=== PATIENT | male | born 1990 | race Caucasian/White ===

== ENCOUNTER 2016-12-20 09:04 | Day surgery (SDC) | payer OTHER ==
[2016-12-20] MEDS ORDERED: Sodium Chloride 0.9% 1,000 ML IV ONE ×2 (09:36→12:47)
--- NOTE | 2016-12-20 09:44 | C.PDOC ---
History Of Present Illness 26 year old male presents to the ED with complaints of constant LLQ abdominal pain and hematuria for three days. Patient states he had lithotripsy performed by Dr. Satnam Alas on Monday12/16/2016. He notes he has been compliant with medications and denies fever, nausea, vomiting, diarrhea, or difficulty urinating. Time Seen by Provider: 12/20/16 09:35 Chief Complaint (Nursing): Male Genitourinary History Per: Patient History/Exam Limitations: no limitations Onset/Duration Of Symptoms: Days (3 days) Current Symptoms Are (Timing): Still Present Quality Of Discomfort: "Pain" Associated Symptoms: denies: Fever, Chills, Nausea, Vomiting, Diarrhea Recent travel outside of the [place]: No Additional History Per: Prior Records Past Medical History Reviewed: Historical Data, Nursing Documentation, Vital Signs Vital Signs: Last Vital Signs Temp 98.7 F 12/20/16 19:45 Pulse 87 12/20/16 19:45 Resp 12 12/20/16 19:45 BP 131/86 12/20/16 19:45 Pulse Ox 98 12/20/16 19:45 - Medical History PMH: Kidney Stones, Chronic Kidney Disease Family History: States: Unknown Family Hx - Social History Hx Alcohol Use: No Hx Substance Use: No - Immunization History Hx Tetanus Toxoid Vaccination: No Hx Influenza Vaccination: No Hx Pneumococcal Vaccination: No Review Of Systems Constitutional: Negative for: Fever, Chills Cardiovascular: Negative for: Chest Pain Respiratory: Negative for: Shortness of Breath Gastrointestinal: Positive for: Abdominal Pain. Negative for: Nausea, Vomiting , Diarrhea Genitourinary: Positive for: Hematuria Musculoskeletal: Negative for: Back Pain Physical Exam - Physical Exam Appears: Non-toxic, No Acute Distress Skin: Warm, Dry Head: Atraumatic Eye(s): bilateral: Normal Inspection, PERRL, EOMI Oral Mucosa: Moist Neck: Supple Chest: Symmetrical, No Deformity Cardiovascular: Rhythm Regular Respiratory: Normal Breath Sounds, No Rhonchi, No Wheezing Gastrointestinal/Abdominal: Soft, Tenderness (LLQ tenderness), No Distention, No Guarding, No Rebound Back: Normal Inspection Extremity: Normal ROM, No Tenderness Neurological/Psych: Oriented x3 Gait: Steady ED Course And Treatment - Laboratory Results Result Diagrams: 12/20/16 10:16 12/20/16 10:16 Progress Note: CT scan was ordered. Patient was given Toradol and IV fluids. Medical Decision Making Medical Decision Making: Impression: Left sided abdominal pain, hematuria Plan: * Urinalysis * Xray Progress: UA shows RBCs, XRay shows no calculus. 10:[address] Johnathan Alas 10:50 Dr Alas calls back and requests CT scan to rule out any remaining calculus or hematoma 12:30 Dr Alas states will come to ED at 1430 and to keep patient NPO for the OR Disposition - Disposition Disposition: HOSPITALIZED Disposition Time: 13:49 Condition: STABLE - POA Present On Arrival: None - Clinical Impression Clinical Impression: Calculus of distal left ureter - Scribe Statement The provider has reviewed the documentation as recorded by the Scribe Cecile Alonzo All medical record entries made by the Brianibe were at my direction and personally dictated by me. I have reviewed the chart and agree that the record accurately reflects my personal performance of the history, physical exam, medical decision making, and the department course for this patient. I have also personally directed, reviewed, and agree with the discharge instructions and disposition. Decision To Admit - Pt Status Changed To: Hospital Disposition Of: SDS- Endo,OR,Cath,IR - . Bed Request Type: Same Day Surgery Admitting Physician: Satnam Alas Patient Diagnosis: Calculus of distal left ureter
[2016-12-20 09:59] LABS: RBC URINE 2168 /hpf (0-3); URINE BACTERIA RARE (<OCC); URINE BILIRUBIN NEGATIVE (NEGATIVE); URINE BLOOD 2+ (NEGATIVE); URINE COLOR Red (YELLOW); URINE GLUCOSE (UA) NORMAL (Normal); URINE KETONE NEGATIVE (NEGATIVE); URINE LEUKOCYTE ESTERASE TRACE Leu/uL (Negative); URINE PROTEIN 2+ mg/dL (NEGATIVE); URINE UROBILINOGEN NORMAL mg/dL (0.2-1.0); WBC URINE 51 /hpf (0-5)
[2016-12-20] MEDS ORDERED: Sodium Chloride 0.9% 1,000 ML ONE ×2 (10:02→13:09)
[2016-12-20 10:20] LABS: HEMATOCRIT 43.5 % (35.0-51.0); MEAN CELL VOLUME 89.4 fL (80.0-94.0); MEAN CORPUSCULAR HEMOGLOBIN 28.9 pg (27.0-31.0); MEAN CORPUSCULAR HGB CONC 32.4 g/dL (33.0-37.0); MEAN PLATELET VOLUME 8.5 fL (7.2-11.7); WHITE BLOOD COUNT 6.8 K/uL (4.8-10.8)
--- NOTE | 2016-12-20 10:28 | RAD ---
HISTORY: Left kidney stone COMPARISON: CT abdomen and pelvis without contrast performed 02/16/16 FINDINGS: BOWEL: Nonobstructive bowel gas pattern. No definite free air. Bowel gas/debris limits evaluation for coarse calcifications which are not clearly evident on this examination. BONES: No acute osseous abnormality is detected. OTHER FINDINGS: None. IMPRESSION: No acute findings.
[2016-12-20 10:33] LABS: CHLORIDE 97 mmol/L (98-107)
[2016-12-20 10:34] LABS: POTASSIUM 4.3 mmol/L (3.6-5.2); SODIUM 141 mmol/L (132-148)
[2016-12-20 10:36] LABS: ALB/GLOB RATIO 1.3 (1.0-2.1); ALKALINE PHOSPHATASE 93 U/L (38-126); AST/SGOT 30 U/L (17-59); BILIRUBIN,TOTAL 0.6 mg/dL (0.2-1.3); BLOOD UREA NITROGEN 6 mg/dL (9-20); CARBON DIOXIDE 28 mmol/L (22-30); GFR AFRICAN-AMERICAN > 60; TOTAL PROTEIN 7.7 g/dL (6.3-8.3)
[2016-12-20 10:37] LABS: ALT/SGPT 22 U/L (21-72); CALCIUM 9.3 mg/dl (8.6-10.4); GLUCOSE,RANDOM 88 mg/dL (75-110)
--- NOTE | 2016-12-20 11:56 | CT ---
PROCEDURE: CT Abdomen and Pelvis without Oral or IV contrast. HISTORY: left flank pain COMPARISON: CT abdomen and pelvis without contrast performed 02/16/16 TECHNIQUE: Contiguous axial images of the abdomen and pelvis. No oral or IV contrast administered. Coronal and Sagittal reformats generated and reviewed. Radiation dose: Total exam DLP = 448.99 MGy-cm. This CT exam was performed using one or more of the following dose reduction techniques: Automated exposure control, adjustment of the mA and/or kV according to patient size, and/or use of iterative reconstruction technique. FINDINGS: There is limited evaluation of the solid organs without the administration of IV contrast. LOWER THORAX: No visible consolidation, pleural effusion, or pneumothorax. LIVER: Unremarkable unenhanced appearance. GALLBLADDER AND BILE DUCTS: Unremarkable unenhanced appearance. PANCREAS: Unremarkable unenhanced appearance. SPLEEN: Unremarkable unenhanced appearance. ADRENALS: Unremarkable unenhanced appearance. KIDNEYS AND URETERS: 6 mm obstructing distal left ureteral calculus (series 3, image 136), with proximal hydroureter nephrosis. Nonobstructing 5 mm and 3 mm left lower pole calculi. BLADDER: The urinary bladder appears unremarkable. Evidence of urachal remnant. REPRODUCTIVE: Unremarkable. APPENDIX: The appendix appears within normal limits of caliber. No secondary signs of acute appendicitis. BOWEL: The stomach is nondistended. Lack of oral contrast limits evaluation for bowel pathology. The bowel loops appear within normal limits of caliber without evidence of intestinal obstruction. PERITONEUM: No significant free fluid. No definite free air. LYMPH NODES: No bulky lymphadenopathy identified. VASCULATURE: No aortic aneurysm. BONES: No acute osseous abnormality is detected. OTHER FINDINGS: Tiny fat containing umbilical hernia IMPRESSION: 6 mm obstructing distal left ureteral calculus, with proximal hydroureteronephrosis. Nonobstructing 5 mm and 3 mm left lower pole calculi. The patient has a urachal remnant. Please note that patients with a urachal remnant are at increased risk for adenocarcinoma of the bladder.
[2016-12-20] MEDS ORDERED: Iohexol 240 (50 ml) ONE (17:02)
[2016-12-20] MEDS ORDERED: cefTRIAXone IV 1 gm in Dextros 50 ML IVPB ONE (17:02)
[2016-12-20] MEDS ORDERED: Lactated Ringer's 1,000 ML IV ONE (17:15)
[2016-12-20] MEDS ORDERED: Propofol 10 mg/ml Inj (20 ML) ONE (17:19)
[2016-12-20] MEDS ORDERED: Lidocaine 2% Jelly (Uro-Jet) ONE (17:51)
[2016-12-20] MEDS ORDERED: HYDROmorphone 0.5 mg/0.5 ml ISec IVP PRN (18:05)
[2016-12-20] MEDS ORDERED: Gentamicin 80 mg in 0.9% NS 80 MG/100 ML BAG IVPB SCH (19:00)
[2016-12-20 20:39] VITALS: BP 131/86; PULSE 87; RESP 12; TEMP 98.7; O2SAT 98
--- NOTE | 2016-12-21 13:01 | RAD ---
HISTORY: LEFT HYDRONEPHROSIS/URETERAL STONE COMPARISON: CT abdomen/ pelvis 12/20/2016 FINDINGS: BOWEL: Normal abdominal bowel gas pattern. No hepatic or splenic enlargement. Three calcifications adjacent to 1 another in the upper left pelvis corresponding to location of the reported ureteral calculus on CT examination of the same date. In retrospect, CT likely demonstrates several calculi as imaged on the coronal reformatted views. These calculi measure 4-5 mm each in diameter. No other abnormal intra-abdominal calcifications are identified. BONES: Normal. OTHER FINDINGS: None. IMPRESSION: Three small calculi adjacent to one another in the distal left ureter, above the level of the ureterovesical junction.
--- NOTE | 2016-12-21 13:02 | RAD ---
PROCEDURE: Intraoperative fluoroscopy HISTORY: LEFT URETERAL STONE COMPARISON: Not available TECHNIQUE: Fluoroscopy was provided for left ureteral stent placement. Total time of fluoroscopy was 11.0 seconds. FINDINGS: Eight fluoroscopic spot films are submitted demonstrating placement of a left ureteral stent. Films are on file for review. IMPRESSION: Fluoroscopy provided.
--- NOTE | 2016-12-30 17:18 | OP ---
PREOPERATIVE DIAGNOSES: Urolithiasis, hematuria, hydronephrosis, flank pain. POSTOPERATIVE DIAGNOSES: Urolithiasis, hematuria, hydronephrosis, flank pain. PROCEDURES: Cystoscopy, ureteroscopy, stone basketing, insertion of a double-J stent without dangles. COMPLICATIONS: There were no complications. ESTIMATED BLOOD LOSS: Less than 10 mL. FINDINGS: 1. Normal anterior urethra. 2. No strictures on reviewing and it was minimally visually occlusive. 3. The ureteral orifice is within normal limits, looked like it was passing some stones. 4. There is a moderate stone burden within the ureter. We basketed some of the stones and placed a double-J stent. INDICATIONS: See the history and physical for further details. A very pleasant gentleman, 3-day history , presented initially with some intermittent pain. We did an ESWL. We broke into the stone, seen many than previously dictated notes, but now he is here on 12/20/2016 for the above procedure. He is complaining of stone bothering him, so we did a cystoscope and ureteroscopy with a plan to remove as much stone as we can, place double J-stent to see if this will make him feel better. We did the ESWL without a stent. The patient tolerated the procedure well without complication, but since then, he is having tremendous amount of discomfort and flank pain, and now we have the stone with hydro, so we brought him into the OR. DESCRIPTION OF PROCEDURE: After obtaining informed consent, the patient was placed on the table. Routine monitors were placed. Time-out was called to confirm the patient, positioning, etc. Antibiotic prophylaxis was given. We introduced the cystoscope via the urethra. Normal anterior urethra. No strictures on reviewing it and minimally to moderately visually occlusive. Ureteral orifice was identified and a retrograde was performed. We now introduced the wire up to the kidney. We went adjacent to this and we feel lot of stones and stone debris. There was one particularly prominent stone. We basketed more prominently and then we basketed others. The ureteroscope went in and out without difficulty and we had a safety wire with it all time. At the termination, we determined to insert a double-J stent and actually we removed the dangles and see if the patient will do well. ADDENDUM: The patient subsequently had stent pain and discomfort which we need to address as well. Shaggy Alas MD
== END 2016-12-20 20:25 | disposition home or self-care (01) ==
LOC: C.ER 09:04 → C.SDS 14:02
PROVIDERS: ATTEND Urology
DX: N13.2 Hydronephrosis with renal and ureteral calculous obstruction (principal)
CPT/HCPCS: 52332; 74000; 74176; 76000; 80053; 81001; 82365; 85027; 88300; 96361; 96374; 99285; C1769; C2617; J0696; J1170; J1580; J1885; J7040; J7120

== ENCOUNTER 2016-12-21 20:32 | Observation (INO) | payer OTHER ==
[2016-12-21] MEDS ORDERED: Sodium Chloride 0.9% 1,000 ML IV ONE (21:57)
--- NOTE | 2016-12-21 22:14 | C.PDOC ---
History Of Present Illness A 26 y/o M with a recent left kidney stone and a lithotripsy done December 16, c/o diffuse left sided flank pain and hematuria with associated nausea that began today. Reports flank pain and hematuria continued after the lithotripsy. A stent was placed yesterday by Dr. Satnam Alas. Notes last night he was fine, but today c/o increasing pain. Took Motrin, Tylenol, Flomax, and Ibuprofen with no relief. Denies vomiting, fever, chills, or any other complaints. Time Seen by Provider: 12/21/16 21:47 Chief Complaint (Nursing): Dizziness/Lightheaded History Per: Patient History/Exam Limitations: no limitations Onset/Duration Of Symptoms: Days Current Symptoms Are (Timing): Still Present Severity: Mild Quality Of Discomfort: "Pain" Associated Symptoms: Nausea. denies: Vomiting Recent travel outside of the [place]: No Additional History Per: Patient Past Medical History Reviewed: Historical Data, Nursing Documentation, Vital Signs Vital Signs: Last Vital Signs Temp 98.3 F 12/21/16 20:37 Pulse 68 12/21/16 20:37 Resp 20 12/21/16 20:37 BP 119/83 12/21/16 20:37 Pulse Ox 98 12/21/16 22:17 - Medical History PMH: Kidney Stones, Chronic Kidney Disease Family History: States: Unknown Family Hx - Social History Hx Alcohol Use: No Hx Substance Use: No - Immunization History Hx Tetanus Toxoid Vaccination: No Hx Influenza Vaccination: No Hx Pneumococcal Vaccination: No Review Of Systems Except As Marked, All Systems Reviewed And Found Negative. Constitutional: Negative for: Fever, Chills Gastrointestinal: Positive for: Nausea. Negative for: Vomiting Genitourinary: Positive for: Hematuria Musculoskeletal: Positive for: Back Pain (Left flank pain, diffuse) Physical Exam - Physical Exam Appears: Non-toxic, No Acute Distress (Quiet on the stretcher) Skin: Warm, Dry Head: Atraumatic, Normacephalic Oral Mucosa: Moist Cardiovascular: Rhythm Regular Respiratory: Normal Breath Sounds, No Accessory Muscle Use, No Rales, No Rhonchi , No Wheezing Gastrointestinal/Abdominal: Soft, Tenderness (Mild mid abominal tenderness) Back: No CVA Tenderness Neurological/Psych: Oriented x3, Normal Speech, Normal Cognition ED Course And Treatment - Laboratory Results Result Diagrams: 12/21/16 22:25 12/21/16 22:25 Lab Interpretation: No Acute Changes O2 Sat by Pulse Oximetry: 98 (RA) Pulse Ox Interpretation: Normal Reevaluation Time: 23:53 Reassessment Condition: Improved (slightly after IV Morphine but still having flank pain.) - Physician Consult Information Time Consulting Physician Contacted: 23:53 Physician Contacted: Satnam Alas Outcome Of Conversation: Patient to be admitted overnight for stent removal tomorrow. Medical Decision Making Medical Decision Making: Impression: A 26 y/o M c/o diffuse left sided flank pain and hematuria with associated nausea that began today. Hx of arecent left kidney stone with a lithotripsy done December 16, Plans: * Blood work up * Morphine * IV fluids * UA * Reassess Disposition - Disposition Disposition: HOSPITALIZED Disposition Time: 23:54 Condition: STABLE - Clinical Impression Clinical Impression: Calculus of distal left ureter, Left flank pain - Scribe Statement The provider has reviewed the documentation as recorded by the Scribe Sunita albrecht All medical record entries made by the Brianibdebra were at my direction and personally dictated by me. I have reviewed the chart and agree that the record accurately reflects my personal performance of the history, physical exam, medical decision making, and the department course for this patient. I have also personally directed, reviewed, and agree with the discharge instructions and disposition.
[2016-12-21 22:29] LABS: BASO % 0.4 % (0.0-2.0); EOS # 0.2 K/uL (0.0-0.7); HEMATOCRIT 42.4 % (35.0-51.0); LYMPH # 2.4 K/uL (1.0-4.3); LYMPH % 23.5 % (20.0-40.0); MEAN CELL VOLUME 88.3 fL (80.0-94.0); MEAN CORPUSCULAR HEMOGLOBIN 29.9 pg (27.0-31.0); MEAN CORPUSCULAR HGB CONC 33.8 g/dL (33.0-37.0); MEAN PLATELET VOLUME 8.4 fL (7.2-11.7); MONO # 0.8 K/uL (0.0-0.8); MONO % 8.2 % (0.0-10.0); RED CELL DISTRIBUTION WIDTH 12.7 % (11.5-14.5)
[2016-12-21] MEDS ORDERED: Morphine 4 MG/ML VIAL ONE (22:32)
[2016-12-21 22:38] LABS: RBC URINE 15 /hpf (0-3); URINE BACTERIA RARE (<OCC); URINE BILIRUBIN NEGATIVE (NEGATIVE); URINE BLOOD 3+ (NEGATIVE); URINE COLOR Straw (YELLOW); URINE GLUCOSE (UA) NORMAL (Normal); URINE KETONE NEGATIVE (NEGATIVE); URINE PROTEIN 1+ mg/dL (NEGATIVE); URINE UROBILINOGEN NORMAL mg/dL (0.2-1.0); WBC URINE 4 /hpf (0-5)
[2016-12-21 22:39] LABS: URINE LEUKOCYTE ESTERASE TRACE Leu/uL (Negative)
[2016-12-21 22:55] LABS: CHLORIDE 96 mmol/L (98-107)
[2016-12-21 22:56] LABS: POTASSIUM 3.5 mmol/L (3.6-5.2); SODIUM 142 mmol/L (132-148)
[2016-12-21 22:58] LABS: ALB/GLOB RATIO 1.3 (1.0-2.1); ALKALINE PHOSPHATASE 93 U/L (38-126); AST/SGOT 34 U/L (17-59); BILIRUBIN,TOTAL 0.6 mg/dL (0.2-1.3); BLOOD UREA NITROGEN 3 mg/dL (9-20); CARBON DIOXIDE 28 mmol/L (22-30); GFR AFRICAN-AMERICAN > 60; TOTAL PROTEIN 7.9 g/dL (6.3-8.3)
[2016-12-21 22:59] LABS: ALT/SGPT 30 U/L (21-72); CALCIUM 9.4 mg/dl (8.6-10.4); GLUCOSE,RANDOM 91 mg/dL (75-110)
[2016-12-22] MEDS ORDERED: Oxycodone/Acetaminophen 5/325 mg Tab PO PRN (00:49)
[2016-12-22] MEDS ORDERED: Potassium Ch 20mEq in D5-1/2NS 1,000 ML IV SCH (01:00)
[2016-12-22] MEDS ORDERED: Midazolam 2 MG/2 ML VIAL ONE (08:56)
[2016-12-22] MEDS ORDERED: Propofol 10 mg/ml Inj (20 ML) ONE (08:56)
[2016-12-22] MEDS ORDERED: cefTRIAXone IV 1 gm in Dextros 50 ML IVPB ONE (08:57)
[2016-12-22] MEDS ORDERED: Lactated Ringer's 1,000 ML IV ONE (09:00)
[2016-12-22] MEDS ORDERED: Lidocaine 2% Jelly (Uro-Jet) ONE (09:36)
[2016-12-22 09:40] VITALS: O2SAT 100
[2016-12-22 12:56] VITALS: PULSE 61
[2016-12-22 12:59] VITALS: BP 126/84; RESP 10; TEMP 97.3
--- NOTE | 2016-12-22 16:27 | OP ---
DATE OF PROCEDURE: 12/22/2016 PREOPERATIVE DIAGNOSES: Urolithiasis, hematuria, severe colic, severe pain when he urinates, and flank pain. POSTOPERATIVE DIAGNOSES: Urolithiasis, hematuria, severe colic, severe pain when he urinates, flank pain, and the stent is in good location. PROCEDURES: Cystoscopy, removal of a left double-J stent, and injection of lidocaine jelly via the urethra. COMPLICATIONS: There were no complications. BLOOD LOSS: Nothing. INDICATIONS: See history and physical for details. This is a very pleasant gentleman, here for the above procedures. He has just been in chronic pain since we did the procedure on 12/16. I have a repeat CT scan. There is no hematoma. In the differential, I considered many different options. On that CT scan, there was no hematoma. The stones are fragmented well with respect to a very successful procedure and he has been passing some little pieces. See the history and physical for details. We put a stent in to see if this would give him relief, it did not, so now he came in to the ER again and I am going to remove the stent as an emergency. I do want to mention in between, the throat pain was bothering him, this is better. He is now also reporting no bowel movements, but it is not bothering him so much, but see plan as listed below in the addendum that is now the procedure itself. DESCRIPTION OF PROCEDURE: After obtaining informed consent, the patient was placed on the table. Routine monitor was placed. Time-out was called to confirm the patient, positioning, etc. The patient was also on antibiotic prophylaxis. We inserted the cystoscope via the urethra. Anterior urethra was normal. No stricture was on the view and it was minimally inclusive. The ureteral orifice was identified and the stent was in good location. Picture was taken. We emptied the bladder. We removed the stent without difficulty. Stent was pulled out grossly intact. I witnessed it, the nurses witnessed it, [place]. Bladder was emptied. Cystoscope was removed. The patient tolerated the procedure well without complications. I just want to mention, at this point, I also injected lidocaine jelly by the urethra to assist the patient. The patient tolerated the procedure well without complications. the patient with postop Toradol. Shaggy Alas MD [facility] # [id number]
--- NOTE | 2016-12-22 20:54 | HP ---
REASON FOR ADMISSION: Severe renal colic, stent pain and abdominal pain. HISTORY OF PRESENT ILLNESS: Very pleasant 26-year-old gentleman. I initially met the patient. He had a stone upon his kidney and wanted emergency treatment. At that time, we had to make arrangements to find a place that his insurance will cover. He is on a student visa and we eventually brought him to [facility] where we did a shockwave lithotripsy outside the body with no stent. Then, I spoke to the patient several times over the weekend that was last Monday and the date was on 12/16/2016, that he was having throat pain and I had recommended emergency room and he started complaining of abdominal/flank pain and actually his throat got better. We gave him some Cepacol lozenges. He is having no shortness of breath or chest pain or any other symptomatic signs, just throat was hurting him. He was not able to and go back to any emergency room. Then, on Monday this week, on 12/19/2016, he was complaining of severe pain. At that time, we did a KUB. I can see the stone was broken nicely. The initial 1 cm stone had broken. But then, he was complaining of pain more and more, and then on 12/20/2016, we brought him to the hospital and we put an immediate stent in. At that time, I also did ureteroscopy and I did stone basketing. He had one large 6 mm stone just around the iliac crest below that area. Just down the way where that would be the crossing of the vessels. Easily seen on the KUB and the CT scan. Probably, he had stone fragments, the stone is definitely nicely broken in the kidney. He also had a left hydronephrosis and so we put a stent and hoping this would give him some relief. Since that time, we then discharged the patient home and he was feeling better initially and then yesterday, he started complaining again that he is having a lot of pain and every time when he urinates, it hurts in his back and it hurts in his penis. So, I brought him back to the emergency room. The stent is in good location. I brought him in as an emergency admission . PAST MEDICAL AND SURGICAL HISTORY: Otherwise unremarkable. SOCIAL HISTORY: Again, he is here on a student visa. Some kind, I think he goes to school in [place], but he is here now for the summer. MEDICATIONS: He is on Cipro, Pyridium, Motrin, Tylenol with Codeine. REVIEW OF SYSTEMS: Otherwise unremarkable. Just a little remark, he has not had a bowel movement in a couple of days according to the patient, but he does not feel too distended according to himself. PHYSICAL EXAMINATION: GENERAL: A well-nourished male, in no apparent distress. VITAL SIGNS: Within normal limits. LUNGS: Clear. ABDOMEN: Soft. Not grossly distended, but certainly no rebound or guarding. GENITOURINARY: The patient has normal phallus. No testicular masses. RECTAL: Deferred now, but previously rectal exam was within normal limits. LABORATORY DATA: See chart. DIAGNOSES: Urolithiasis, hematuria, stone disease. PLAN: As follows: I explained to the patient in general I think he needs to take some of the pain medicines particularly Motrin and just try to accept that some of this is all normal postop healing. We initially tried staying away from the patient by placing a stent. Therefore, we did ESWL. We then placed the stent and this does not find him relief. There is nothing objective, it is just a general comment about his healing process again if I the throat and the discomfort that he had in the throat and several phone calls and text messages that this generated. So, I discussed with the patient the plan at this point. I am going to remove the stent. The only fragment that I left are very small, it should pass easily, totalling less than a millimeter in size and they may cause some colic I explained this to the patient. I am also going to provide the patient with some Toradol. does a bit of planning to discharge the patient home after an emergency cysto and stent removal. So, it is now 12/21/2016 at about almost midnight. This is an emergency admission. The plan would be to get him to the OR tomorrow morning as early as possible and remove the stent. Shaggy Alas MD
--- NOTE | 2016-12-23 04:58 | DS ---
UROLOGY DISCHARGE NOTE The patient seen and he previously dictated note on 12/16/2016 underwent an uncomplicated and postoperative on 12/17/2016. I spoke to the patient several times he had a lot of throat pain, but not abdominal pain. Starting 12/19/2016, he started to have abdominal pain. We did a KUB. We can see the stone's fragment did not broken. The patient is still having more pain on 12/20/2016. At that time, we brought him back to this hospital. See the previously dictated notes from here on 12/20/2016. We put a stent in. At that time, we did a stent and ureteroscopy and stone basketing. Since then, he has been complaining of pain from the stent and discomfort. We brought him last night as an emergency in the middle of night and on 12/22/2016, in the morning, we pulled out the stent. At this time, he is discharged in stable condition. I explain to the patient that this point is stable. His vital signs are all stable. I told him to take his analgesics, Motrin particularly as needed and drink a lot of fluid and we excepting some pain and discomfort in his load in his back and his pain as everything resolves. Also, I gave the patient medication to assist him with bowel movement and further plan for follow. Shaggy Alas MD
[2016-12-25] MEDS ORDERED: Pneumococcal 23-Valent Vaccine IM ONE (10:00)
== END 2016-12-22 16:30 | disposition home or self-care (01) ==
LOC: C.ER 20:32 → C.3T 23:55
PROVIDERS: ADMIT Urology; ATTEND Urology
DX: N20.1 Calculus of ureter (principal); G89.29 Other chronic pain; N13.2 Hydronephrosis with renal and ureteral calculous obstruction; R31.9 Hematuria, unspecified
CPT/HCPCS: 52310; 80053; 81001; 85025; 96374; G0378; J0696; J1885; J2270; J7040; J7120

== ENCOUNTER 2016-12-24 02:07 | Emergency (ER) | payer OTHER ==
[2016-12-24] MEDS ORDERED: Sodium Chloride 0.9% 500 ML IV ONE (02:53)
[2016-12-24] MEDS ORDERED: Morphine 4 MG/ML VIAL ONE (03:05)
[2016-12-24 03:14] LABS: BASO % 0.5 % (0.0-2.0); EOS # 0.3 K/uL (0.0-0.7); EOS % 3.5 % (0.0-4.0); HEMOGLOBIN 13.8 g/dL (12.0-18.0); LYMPH # 1.3 K/uL (1.0-4.3); MEAN CELL VOLUME 88.3 fL (80.0-94.0); MEAN CORPUSCULAR HGB CONC 32.8 g/dL (33.0-37.0); MEAN PLATELET VOLUME 8.6 fL (7.2-11.7); MONO # 0.8 K/uL (0.0-0.8); MONO % 11.2 % (0.0-10.0); NEUT # 4.9 K/uL (1.8-7.0); NEUT % 66.8 % (50.0-75.0); NRBC % 0.1 % (0.0-2.0); RBC 4.78 Mil/uL (4.40-5.90); RED CELL DISTRIBUTION WIDTH 12.9 % (11.5-14.5); WHITE BLOOD COUNT 7.3 K/uL (4.8-10.8)
[2016-12-24 03:27] LABS: ALBUMIN 4.3 g/dL (3.5-5.0)
[2016-12-24 03:30] LABS: ALB/GLOB RATIO 1.3 (1.0-2.1); AST/SGOT 24 U/L (17-59); BLOOD UREA NITROGEN 5 mg/dL (9-20); GFR AFRICAN-AMERICAN > 60; GFR NON-AFRICAN AMERICAN > 60
[2016-12-24 03:31] LABS: ALT/SGPT 28 U/L (21-72); CALCIUM 8.9 mg/dl (8.6-10.4)
[2016-12-24 03:59] LABS: URINE BILIRUBIN NEGATIVE (NEGATIVE); URINE BLOOD 2+ (NEGATIVE); URINE CLARITY Clear (Clear); URINE COLOR Colorless (YELLOW); URINE GLUCOSE (UA) NORMAL (Normal); URINE LEUKOCYTE ESTERASE NEG Leu/uL (Negative); URINE NITRATE NEGATIVE (NEGATIVE); URINE PROTEIN NEGATIVE (NEGATIVE); URINE UROBILINOGEN NORMAL mg/dL (0.2-1.0)
--- NOTE | 2016-12-24 04:27 | C.PDOC ---
History Of Present Illness 26 year old male who is SP lithotripsy on Monday presents to the ER with a complaint of LLQ pain. Patient reports taking 1 percocet with no relief to symptoms; denies dysuria or hematuria, fever, vomiting. Time Seen by Provider: 12/24/16 02:32 Chief Complaint (Nursing): Abdominal Pain History Per: Patient History/Exam Limitations: no limitations Onset/Duration Of Symptoms: Days Current Symptoms Are (Timing): Still Present Location Of Pain/Discomfort: LLQ Radiation Of Pain To:: None Quality Of Discomfort: Unable To Describe Associated Symptoms: denies: Urinary Symptoms Exacerbating Factors: None Alleviating Factors: None Recent travel outside of the [place]: No Past Medical History Reviewed: Historical Data, Nursing Documentation, Vital Signs Vital Signs: Last Vital Signs Temp 97.8 F 12/24/16 05:51 Pulse 61 12/24/16 05:51 Resp 16 12/24/16 05:51 BP 108/70 12/24/16 05:51 Pulse Ox 100 12/24/16 05:51 - Medical History PMH: Kidney Stones, Chronic Kidney Disease Surgical History: No Surg Hx Family History: States: Unknown Family Hx - Social History Hx Alcohol Use: No Hx Substance Use: No - Immunization History Hx Tetanus Toxoid Vaccination: No Hx Influenza Vaccination: No Hx Pneumococcal Vaccination: No Review Of Systems Constitutional: Negative for: Fever, Chills Gastrointestinal: Positive for: Abdominal Pain Genitourinary: Negative for: Dysuria, Incontinence, Hematuria Physical Exam - Physical Exam Appears: Non-toxic Skin: Normal Color, Warm, Dry Head: Atraumatic, Normacephalic Oral Mucosa: Moist Chest: Symmetrical, No Tenderness Cardiovascular: Rhythm Regular, No Murmur Respiratory: Normal Breath Sounds, No Rales, No Rhonchi, No Wheezing Gastrointestinal/Abdominal: Soft, Tenderness (LLQ), No Guarding, No Rebound Back: Normal Inspection, No CVA Tenderness Neurological/Psych: Oriented x3, Normal Speech, Normal Cognition ED Course And Treatment - Laboratory Results Result Diagrams: 12/24/16 03:05 12/24/16 03:05 O2 Sat by Pulse Oximetry: 99 (Room air) Pulse Ox Interpretation: Normal Progress Note: Toradol, morphine, and IV fluids administered. Disposition Counseled Patient/Family Regarding: Diagnosis, Need For Followup, Rx Given - Disposition Disposition: HOME/ ROUTINE Disposition Time: 05:34 Condition: STABLE Additional Instructions: Pllease continue current pain meds increase fluids Follow up with Dr Alas Return to ER if worse Instructions: Acute Abdominal Pain (ED) Forms: [facility] ([place]) - Clinical Impression Clinical Impression: Abdominal pain - Scribe Statement The provider has reviewed the documentation as recorded by the Scribe Abelardo Nixon All medical record entries made by the Scribe were at my direction and personally dictated by me. I have reviewed the chart and agree that the record accurately reflects my personal performance of the history, physical exam, medical decision making, and the department course for this patient. I have also personally directed, reviewed, and agree with the discharge instructions and disposition.
[2016-12-24 05:52] VITALS: BP 108/70; PULSE 61; RESP 16; TEMP 97.8
[2016-12-25 03:36] VITALS: O2SAT 99
== END 2016-12-24 05:52 | disposition home or self-care (01) ==
LOC: C.ER 02:07
DX: R10.32 Left lower quadrant pain (principal)
CPT/HCPCS: 80053; 81001; 85025; 96361; 96374; 96375; 99284; J1885; J2270; J7040

== ENCOUNTER 2017-05-07 10:11 | Emergency (ER) | payer OTHER ==
[2017-05-07 10:17] VITALS: RESP 18; TEMP 98.3; O2SAT 100
--- NOTE | 2017-05-07 11:02 | C.PDOC ---
History Of Present Illness 26 year old male with a past medical history of kidney stones presents to the ED complaining of nasal congestion, body aches, decreased appetite and left sided abdominal pain, onset yesterday. Patient reports that LLQ abdominal pain was worse yesterday but has since improved. He denies any vomiting, diarrhea , SOB, chest pain, difficulty breathing, difficulty swallowing and constipation. PMD: none provided Time Seen by Provider: 05/07/17 10:17 Chief Complaint (Nursing): Abdominal Pain History Per: Patient History/Exam Limitations: no limitations Onset/Duration Of Symptoms: Days (x 1) Current Symptoms Are (Timing): Still Present Location Of Pain/Discomfort: LLQ Past Medical History Reviewed: Historical Data, Nursing Documentation, Vital Signs Vital Signs: Last Vital Signs Temp 98.3 F 05/07/17 10:16 Pulse 92 H 05/07/17 10:16 Resp 18 05/07/17 10:16 BP 131/83 05/07/17 10:16 Pulse Ox 100 05/07/17 12:15 - Medical History PMH: Kidney Stones, Chronic Kidney Disease Other Surgeries: lithotripsy Family History: States: Unknown Family Hx - Social History Hx Alcohol Use: No Hx Substance Use: No - Immunization History Hx Tetanus Toxoid Vaccination: No Hx Influenza Vaccination: No Hx Pneumococcal Vaccination: No Review Of Systems Except As Marked, All Systems Reviewed And Found Negative. Constitutional: Positive for: Other (body aches) ENT: Positive for: Nose Congestion, Throat Pain Gastrointestinal: Positive for: Nausea, Abdominal Pain (left sided). Negative for: Vomiting, Diarrhea, Constipation Physical Exam - Physical Exam Appears: Well, Non-toxic, No Acute Distress Skin: Normal Color, Warm, Dry Head: Atraumatic, Normacephalic Eye(s): bilateral: Normal Inspection, EOMI Ear(s): Bilateral: Normal Nose: Other ((+) nasal congestion) Tongue: Swelling Throat: Normal, No Erythema, No Exudate, No Drooling Neck: Normal, Normal ROM, Supple Lymphatic: Normal Exam Chest: Symmetrical Cardiovascular: Rhythm Regular, No Murmur Respiratory: Normal Breath Sounds, No Accessory Muscle Use Gastrointestinal/Abdominal: Soft, Tenderness (mild left lower quadrant ), No Distention, No Guarding Back: No CVA Tenderness, No Vertebral Tenderness Extremity: Normal ROM Neurological/Psych: Oriented x3, Normal Speech ED Course And Treatment - Laboratory Results Result Diagrams: 05/07/17 11:16 12 11:16 O2 Sat by Pulse Oximetry: 100 (RA) Pulse Ox Interpretation: Normal Progress Note: Time: 11:00. Impression: nasal congestion and abdominal pain. Plan: --CMP. --CBC. --Lactated Ringer's IV 1,000 mls/hr. --Toradol 30 mg IVP. --Zofran Inj 4 mg IVP. --Saline Lock 3 ml NS flush. --Influenza A B. -- Urinalysis. --Obstructive Series [RAD]. Time: 11:47. Influenza A B. -- reviewed by me, results are negative. On re-evlauation, pt notes he feels wells. Has no pain. Tolerating PO. Afebrile. No difficulty breathing or swallowing. Pt has no abdominal pain. Abdomen soft, nontender. Discussed with pt , can not r/o kidney stone, but since pt is currentl symtpomatic , no further imaging will be done. Instructed to return to ER if symtpoms persist or worsen. Medical Decision Making Medical Decision Making: Scribe Attestation: Documented by Mirna Diamond, acting as a scribe for Rafaela Mayo PA-C Provider Scribe Attestation: All medical record entries made by the Scribe were at my direction and personally dictated by me. I have reviewed the chart and agree that the record accurately reflects my personal performance of the history, physical exam, medical decision making, and the department course for this patient. I have also personally directed, reviewed, and agree with the discharge instructions and disposition. Disposition - Disposition Disposition: HOME/ ROUTINE Disposition Time: 12:12 Condition: STABLE Additional Instructions: Follow up with your doctor in 1-2 days. Return to ER if symptoms persist or worsen. Prescriptions: Naproxen [Naprosyn] 1 tab PO BID PRN #20 tab PRN Reason: Pain Instructions: Viral Syndrome (ED) Forms: [employer] (Burmese) - Clinical Impression Clinical Impression: Viral illness
[2017-05-07] MEDS ORDERED: Lactated Ringer's 1,000 ML IV ONE (11:06)
[2017-05-07 11:24] LABS: BASO % 0.6 % (0.0-2.0); EOS % 0.7 % (0.0-4.0); HEMATOCRIT 41.9 % (35.0-51.0); LYMPH # 1.3 K/uL (1.0-4.3); LYMPH % 21.7 % (20.0-40.0); MEAN CELL VOLUME 88.8 fL (80.0-94.0); MEAN CORPUSCULAR HGB CONC 33.8 g/dL (33.0-37.0); MEAN PLATELET VOLUME 8.2 fL (7.2-11.7); MONO # 0.6 K/uL (0.0-0.8); RED CELL DISTRIBUTION WIDTH 12.9 % (11.5-14.5); WHITE BLOOD COUNT 5.9 K/uL (4.8-10.8)
[2017-05-07 11:30] LABS: URINE BILIRUBIN NEGATIVE (NEGATIVE); URINE BLOOD 1+ (NEGATIVE); URINE COLOR Colorless (YELLOW); URINE GLUCOSE (UA) NORMAL (Normal); URINE KETONE NEGATIVE (NEGATIVE); URINE LEUKOCYTE ESTERASE NEG Leu/uL (Negative); URINE PROTEIN NEGATIVE (NEGATIVE); URINE UROBILINOGEN NORMAL mg/dL (0.2-1.0); WBC URINE < 1 /hpf (0-5)
[2017-05-07] MEDS ORDERED: Lactated Ringer's 1,000 ML ONE (11:30)
[2017-05-07 11:38] LABS: ALB/GLOB RATIO 1.7 (1.0-2.1); ALKALINE PHOSPHATASE 73 U/L (38-126); ALT/SGPT 48 U/L (21-72); AST/SGOT 27 U/L (17-59); BLOOD UREA NITROGEN 7 mg/dL (9-20); CALCIUM 8.7 mg/dl (8.6-10.4); CARBON DIOXIDE 27 mmol/L (22-30); CHLORIDE 101 mmol/L (98-107); GFR AFRICAN-AMERICAN > 60; GLUCOSE,RANDOM 93 mg/dL (75-110); SODIUM 139 mmol/L (132-148); TOTAL PROTEIN 7.5 g/dL (6.3-8.3)
[2017-05-07 12:33] VITALS: BP 127/82; PULSE 62
--- NOTE | 2017-05-07 14:59 | RAD ---
Abdomen four views History: Abdominal pain Comparison: None available. Findings: Lung jteer are clear. Heart size within normal limits. Fecal retention in the colon. No evidence of gross bowel obstruction. Impression: Unremarkable bowel gas pattern without evidence obstruction.
== END 2017-05-07 12:33 | disposition home or self-care (01) ==
LOC: C.ER 10:11
DX: B34.9 Viral infection, unspecified (principal)
CPT/HCPCS: 74022; 80053; 81001; 85025; 87804; 96361; 96374; 96375; 99284; J1885; J2405; J7120

== ENCOUNTER 2017-11-03 18:16 | Emergency (ER) | payer OTHER ==
[2017-11-03 19:05] VITALS: RESP 18; BMI 23.3
[2017-11-03 19:11] LABS: SQUAMOUS EPITHIAL < 1 /hpf (0-5); URINE BILIRUBIN NEGATIVE (NEGATIVE); URINE BLOOD 1+ (NEGATIVE); URINE CLARITY Clear (Clear); URINE COLOR Straw (YELLOW); URINE GLUCOSE (UA) NORMAL (Normal); URINE LEUKOCYTE ESTERASE NEG Leu/uL (Negative); URINE PROTEIN NEGATIVE (NEGATIVE); URINE UROBILINOGEN NORMAL mg/dL (0.2-1.0)
--- NOTE | 2017-11-03 19:24 | C.PDOC ---
History Of Present Illness Patient is a 27 y/o male who presents to the ED with a complaint of left flank pain associated with nausea since 3:00pm today. Patient has a Hx of kidney stones in which he underwent ESWL procedure in [place] and had a stent put in here by Dr Moore. Patient notes pain is similar to prior. No other physical complaints at this time. Chief Complaint (Nursing): Male Genitourinary History Per: Patient History/Exam Limitations: no limitations Onset/Duration Of Symptoms: Days (3:00pm) Current Symptoms Are (Timing): Still Present Associated Symptoms: Nausea Recent travel outside of the [place]: No Past Medical History Reviewed: Historical Data, Nursing Documentation, Vital Signs Vital Signs: Last Vital Signs Temp 98.8 F 11/03/17 21:47 Pulse 90 11/03/17 21:47 Resp 18 11/03/17 21:47 BP 122/83 11/03/17 21:47 Pulse Ox 100 11/03/17 21:47 - Medical History PMH: Kidney Stones (ESWL), Chronic Kidney Disease (SEE COMMENT) Other Surgeries: ESWL and stent Family History: States: No Known Family Hx - Social History Hx Tobacco Use: No Hx Alcohol Use: No Hx Substance Use: No - Immunization History Hx Tetanus Toxoid Vaccination: No Hx Influenza Vaccination: No Hx Pneumococcal Vaccination: No Review Of Systems Constitutional: Negative for: Fever, Chills Eyes: Negative for: Pain, Vision Change ENT: Negative for: Ear Pain, Ear Discharge, Nose Pain, Nose Congestion, Mouth Pain, Mouth Swelling Cardiovascular: Negative for: Chest Pain, Palpitations, Orthopnea Respiratory: Positive for: Cough, Shortness of Breath, SOB with Excertion, Pleuritic Pain, Sputum. Negative for: Wheezing Gastrointestinal: Positive for: Nausea, Abdominal Pain Genitourinary: Positive for: Dysuria, Frequency. Negative for: Hematuria, Rash , Penile Pain Musculoskeletal: Negative for: Neck Pain, Shoulder Pain, Arm Pain Skin: Negative for: Rash Neurological: Negative for: Weakness, Numbness, Incoordination, Change in Speech Physical Exam - Physical Exam Appears: Well, Non-toxic, No Acute Distress Skin: Normal Color, Warm, Dry Head: Atraumatic, Normacephalic Oral Mucosa: Moist Throat: Normal Neck: Normal Chest: Symmetrical Cardiovascular: Rhythm Regular, No Murmur Respiratory: Normal Breath Sounds, No Rales, No Rhonchi, No Wheezing Gastrointestinal/Abdominal: Soft, Tenderness (minimal left flank tenderness), No Guarding, No Rebound Back: Normal Inspection Male Genital: Normal Inspection Extremity: Normal ROM Extremity: Bilateral: No Pedal Edema, Normal Color And Temperature, Normal ROM Neurological/Psych: Oriented x3, Normal Speech, Normal Cognition Pain Response: Withdraws With Pain Gait: Steady ED Course And Treatment O2 Sat by Pulse Oximetry: 97 - CT Scan/US CT abdomen/pelvis Other Rad Studies (CT/US): Interpreted By Me, Read By Radiologist CT/US Interpretation: EXAM: CT Abdomen and Pelvis Without Intravenous Contrast. EXAM DATE/TIME: 11/03/2017 8:22 PM. CLINICAL HISTORY: 27 years old , male; Pain; Other: Left flank; Patient HX: HX of renal stones; Additional info : Left flank. pain. TECHNIQUE: Axial computed tomography images of the abdomen and pelvis without intravenous contrast. All CT. scans at this facility use one or more dose reduction techniques, viz.: automated exposure control;. ma/kV adjustment per patient size (including targeted exams where dose is matched to indication; i.e. head); or iterative reconstruction technique. COMPARISON: CT - ABD PELVIS W/O PO OR IV CONT 2016-12-20 11:18. FINDINGS: Lower thorax: Heart size is normal. Lung bases are clear. ABDOMEN: Liver: unremarkable. Gallbladder and bile ducts: unremarkable. Pancreas: unremarkable. Spleen: unremarkable. Adrenals: unremarkable. Kidneys and ureters: There is a tiny nonobstructing left renal stone.Kidneys and ureters are. otherwise unremarkable. Stomach and bowel: Stomach is partially distended. Rotation is normal. There is no obstruction. There is mild fatty infiltration of the terminal ileal wall. Appendix is unremarkable. There is moderate. stool and air in the right colon. Left colon is collapsed. PELVIS: Appendix: See stomach and bowel. Bladder: unremarkable. Reproductive: Seminal vesicles and prostate are unremarkable. ABDOMEN and PELVIS: Intraperitoneal space: There is no free air or free fluid. Bones/joints: There are no acute osseous abnormalities. Soft tissues: unremarkable. Vasculature: Vascular structures are unremarkable. Lymph nodes: There is shotty adenopathy. IMPRESSION: Nonobstructing left renal stone, no ureteral stones or hydronephrosis; no acute solid. visceral or bowel abnormality Progress Note: CT abdomen/pelvis ordered. Patient notes pain is improving. On re-eval, patient is resting comfortably and stable for discharge. Disposition Doctor Will See Patient In The: Office Counseled Patient/Family Regarding: Diagnosis, Need For Followup, Rx Given - Disposition Referrals: Satnam Alas MD [Staff Provider] - Disposition: HOME/ ROUTINE Disposition Time: 21:31 Condition: GOOD Additional Instructions: return if symptoms worsen or return Prescriptions: Naproxen [Naprosyn] 500 mg PO BID PRN 10 Days #20 tablet PRN Reason: Pain, Mild (1-3) Instructions: Kidney Stones in Adults Forms: [employer] (Beninese) - Clinical Impression Clinical Impression: Left flank pain, Nephrolithiasis - Scribe Statement The provider has reviewed the documentation as recorded by the Scribe Vernell Hendrix All medical record entries made by the Scribe were at my direction and personally dictated by me. I have reviewed the chart and agree that the record accurately reflects my personal performance of the history, physical exam, medical decision making, and the department course for this patient. I have also personally directed, reviewed, and agree with the discharge instructions and disposition.
[2017-11-03 21:48] VITALS: BP 122/83; PULSE 90; TEMP 98.8
[2017-11-04 03:03] VITALS: O2SAT 97
--- NOTE | 2017-11-04 10:11 | CT ---
PROCEDURE: CT Abdomen and Pelvis without intravenous contrast HISTORY: left flank pain COMPARISON: 12/20/2016 TECHNIQUE: Without contrast.. Contrast dose: 0 Radiation dose: Total exam DLP = 286.73 mGy-cm. This CT exam was performed using one or more of the following dose reduction techniques: Automated exposure control, adjustment of the mA and/or kV according to patient size, and/or use of iterative reconstruction technique. FINDINGS: LOWER THORAX: Unremarkable. LIVER: Unremarkable. No gross lesion or ductal dilatation. GALLBLADDER AND BILE DUCTS: Unremarkable. PANCREAS: Unremarkable. No gross lesion or ductal dilatation. SPLEEN: Unremarkable. ADRENALS: Unremarkable. No mass. KIDNEYS AND URETERS: 5 mm nonobstructing mid left renal calculus. No right renal calculus. No hydronephrosis. No renal mass. No hydroureter or ureteral calculus. VASCULATURE: Unremarkable. No aortic aneurysm. BOWEL: Unremarkable. No obstruction. No gross mural thickening. APPENDIX: Unremarkable. Normal appendix. PERITONEUM: Unremarkable. No free fluid. No free air. LYMPH NODES: Shotty subcentimeter lymph nodes medial to the cecum and ascending colon as well as within the small bowel mesenteric. Nonspecific finding unchanged from prior CT. This may reflect mesenteric adenitis. No bulky retroperitoneal or pelvic lymphadenopathy appreciated. BLADDER: Unremarkable. REPRODUCTIVE: Normal prostate BONES: No acute fracture. OTHER FINDINGS: None. IMPRESSION: 5 mm nonobstructing mid left renal calculus. No evidence of urinary tract obstruction. Incidental shotty subcentimeter nodes medial to the cecum/ ascending colon and within the small bowel mesenteric. This finding is unchanged from prior examination. It may indicate nonspecific mesenteric adenitis. No additional abnormality.
== END 2017-11-03 21:47 | disposition home or self-care (01) ==
LOC: C.ER 18:16
DX: N20.0 Calculus of kidney (principal); R10.9 Unspecified abdominal pain